=== PATIENT | female | born 1950 | race African-American/Black ===

== ENCOUNTER 2020-11-16 09:59 | Outpatient (CLI) | payer MEDICARE, MEDICAID | END 2020-11-16 10:00 | disposition home or self-care (01) | LOC: CSHMAMMO 09:59 | PROVIDERS: ATTEND Family Medicine | DX: Z12.31 Encounter for screening mammogram for malignant neoplasm of breast (principal) | CPT/HCPCS: 77063; 77067 ==

== ENCOUNTER 2021-11-18 09:08 | Outpatient (CLI) | payer MEDICARE, MEDICAID | END 2021-11-18 09:09 | disposition home or self-care (01) | LOC: CSHMAMMO 09:08 | PROVIDERS: ATTEND Family Medicine | DX: Z12.31 Encounter for screening mammogram for malignant neoplasm of breast (principal); Z80.3 Family history of malignant neoplasm of breast | CPT/HCPCS: 77063; 77067 ==